=== PATIENT | male | born 1955 | race Caucasian/White ===

== ENCOUNTER 2019-06-21 12:30 | Inpatient (IN) | payer BC ==
[~2019-06-21] VITALS: Ht 185.4 cm; Wt 120.1 kg
[2019-08-24] VITALS (11 sets, daily range): BP systolic 100–146; BP diastolic 42–80; PULSE 52–78; TEMP 97.5–98.5
[2019-08-24] MEDS ORDERED: MULTI VITAMINS1 TAB PO (03:07)
[2019-08-24] MEDS ORDERED: FLOMAX 0.40.4 MG/CAP PO (03:07)
[2019-08-24] MEDS ORDERED: TYLENOL 325MG325 MG PO (03:08)
[2019-08-24] MEDS ORDERED: VITAMIN C500 MG PO (03:10)
[2019-08-24] MEDS ORDERED: IRON TABLETS325 MG PO (03:12)
[2019-08-24] MEDS ORDERED: ADVIL200 MG PO (03:13)
[2019-08-24] MEDS ORDERED: TYLENOL PM EXTR1 TA1 PO (03:14)
--- NOTE | 2019-08-24 05:50 | NUR ---
ARRIVES TO FLOOR VIA W/C FROM ADMITTING. IS ALERT AND ORIENTED X4.
--- NOTE | 2019-08-24 06:21 | NUR ---
TO SURGERY PER BED.
--- NOTE | 2019-08-24 12:03 | NUR ---
PT TO ROOM 328 PER BED WITH REPORT FROM DAVID ALATORRE PACU @[id number]. PT IS A/O X3 LUNGS CLEAR, BOWEL SOUNDS PRESENT. DRESSING TO LEFT KNEE CDI WITH LUBNA WRAP OVER INCISION. IV TO PUMP, SCDS PLACED. PT ORIENTED TO ROOM.
--- NOTE | 2019-08-24 13:51 | NUR ---
PT TO ROOM 332 PER BED WITH REPORT FROM DAVID ALATORRE PACU@1320. PT IS A/O X3, LUNGS CLEAR, BOWEL SOUNDS PRESENT. DRESSING TO LEFT KNEE CDI WITH OCCLUSIVE LUBNA DRESSING TO KNEE. IV TO PUMP , PT DENIES PAIN , SCDS PLACED BILATERALLY. IV TO PUMP.
--- NOTE | 2019-08-24 15:52 | NUR ---
PT UP TO [facility] WITH SBA AMBULATED 100 + FT WITH AIDE, PT CONTINUES TO BE INDEPENDENT IN ROOM AND OUT. VOIDING.
--- NOTE | 2019-08-24 15:59 | NUR ---
Retail Event And Sales Assistant met with patient to discuss discharge planning. Patient states he lives in [place] with his parents, Crystal and Ed. Patient doesn't know their numbers off the top of his head but has their contact information in his cell phone. Patient sees Rashid John APRN for primary care and obtains medications from [facility] in [place]. Patient has a walker to use during recovery but states he is normally independent with ADLS. Patient plans to return home upon discharge. SW to continue to follow as needed.
--- NOTE | 2019-08-24 16:15 | NUR ---
PT AMBULATING INDEPENDENTLY IN HALLS 100 + FEET WITH STEADY GAIT.
--- NOTE | 2019-08-24 20:30 | NUR ---
Pt. sitting up at bedside. Pt. is A&OX3, assessment complete. INt to rt. wrist patent. Dressing to lt. knee CDI. Pt. reports pain at a 8 on pain scale. Pt. reports that he wants to go outside to smoke. Educated pt. of no smoking policy, offered nicotine gum or patch. Pt. voiced understanding, and refused nicotine patch, or gum stating "They don't work". Pt. denies further needs, at this time. Call light within reach.
[2019-08-25 04:07] VITALS: BP 137/58; PULSE 81; TEMP 98
[2019-08-25] MEDS ORDERED: ASPI325T6 PO (07:16)
[2019-08-25] MEDS ORDERED: ROXICODONE 55 MG/TAB PO (07:17)
[2019-08-25] MEDS ORDERED: TYLENOL 500MG500 MG PO (07:17)
[2019-08-25] MEDS ORDERED: NORCO 325 MG-7.1 TAB PO (07:17)
[2019-08-25] MEDS ORDERED: COLACE 100100 MG/CAP PO (07:18)
[2019-08-25 07:43] LABS: HEMOGLOBIN 11.6 g/dl (13.5-18.0)
[2019-08-25 07:46] LABS: HEMATOCRIT 35.6 % (42.0-52.0)
[2019-08-25 07:51] VITALS: BP 144/69; PULSE 82; TEMP 97.6
--- NOTE | 2019-08-25 08:00 | NUR ---
PATIENT IS A&O. VSS. RATES PAIN IN LLE AT 5/10. GAVE PRN ROXICODONE, TWO TABS WITH AM MEDS. LTK DRESSING IS CD&I WITH BULK ACEWRAP. TEDS TO RLE. SCD'S CURRENTLY OFF. PATIENT INDEPENDENT IN ROOM AND HOPING TO DISCHARGE HOME LATER TODAY. GAIT STEADY WITH WALKER. POSITIVE PEDAL PULSES. HEAD TO TOE ASSESSMENT WNL. NO OTHER NEEDS.
--- NOTE | 2019-08-25 09:02 | NUR ---
Initial Visit; Patient thanked Digitizer Operator forlooking in on him and offering God's blessings.
--- NOTE | 2019-08-25 09:45 | NUR ---
CHANGED LTK BULK ACEWRAP DRESSING TO AQUACEL. TEDS TO BLE. PATIENT INDEPENDENT IN HALLS
[2019-08-25 11:56] VITALS: BP 122/54; PULSE 90; TEMP 97.8
--- NOTE | 2019-08-25 14:20 | NUR ---
PATIENT DISCHARGING HOME VIA WC TO PERSONAL VEHICLE WITH HIS DAD. GAVE DISCHARGE INSTRUCTIONS, PRESCRIPTIONS AND FOLLOW UP APTS. ANSWERED ALL QUESTIONS/CONCERNS. IV DC'D. PERSONAL BELONGINGS SENT HOME. PATIENT DISCHARGED.
== END 2019-08-25 14:20 | disposition home or self-care (01) | DRG 470 ==
LOC: JCC 08-24 05:42
PROVIDERS: ADMIT Orthopaedic Surgery
PROC: 0SRD0J9 Replacement of Left Knee Joint with Synthetic Substitute, Cemented, Open Approach (ICD-10-PCS; principal; 2019-08-24 07:30)
DX: M17.12 Unilateral primary osteoarthritis, left knee (principal); F17.210 Nicotine dependence, cigarettes, uncomplicated; G47.33 Obstructive sleep apnea (adult) (pediatric)
CPT/HCPCS: A9284; C1776; J0690; J1100; J2250; J2270; J2405; J2704; J3010; J7120

== ENCOUNTER 2020-01-13 14:47 | Inpatient (IN) | payer BC ==
[~2020-01-13] VITALS: Ht 185.4 cm; Wt 131.5 kg
[~2020-01-13 14:47] MED LIST: ADVIL200 MG PO; ASPI325T6 PO; COLACE 100100 MG/CAP PO; FLOMAX 0.40.4 MG/CAP PO; IRON TABLETS325 MG PO; MULTI VITAMINS1 TAB PO; NORCO 325 MG-7.1 TAB PO; ROXICODONE 55 MG/TAB PO; TYLENOL 325MG325 MG PO; TYLENOL 500MG500 MG PO; TYLENOL PM EXTR1 TA1 PO; VITAMIN C500 MG PO
[2020-03-21] VITALS (12 sets, daily range): BP systolic 105–147; BP diastolic 47–79; PULSE 38–74; TEMP 97.6–98.4
--- NOTE | 2020-03-21 05:10 | NUR ---
IV #20 INSYTE INSERTED TO RIGHT FOREARM BY OMAYRA ALATORRE. LR CONNECTED AND INFUSING WITHOUT PROBLEM.
--- NOTE | 2020-03-21 05:23 | NUR ---
TAKES PREOP MEDS WITH SIP OF WATER.
--- NOTE | 2020-03-21 05:55 | NUR ---
PT ARRIVES TO ROOM 327 VIA AMBULATORY STATUS. IS ALERT AND ORIENTED X4.
--- NOTE | 2020-03-21 06:10 | NUR ---
READY FOR SURGERY.
--- NOTE | 2020-03-21 12:00 | NUR ---
SUJEY met with the patient to discuss discharge plan. The patient lives alone in [place]. He states that his son, Nate (ph#[phone]), lives in [place]. He reports independence with ADLs and has a cane, walker, and rolaider. The patient's primary care provider is Dora Mike APRN at [facility] in [place] and he receives his medications at [facility] in [place]. He reports no difficulties obtaining his meds. The patient does not have a DPOA-HC in EMR, but he states that he does have one completed and that his son, Nate, is his DPOA-HC. The patient plans to return home and receive outpatient PT at [facility] in [place] upon discharge. No additional needs at this time.
--- NOTE | 2020-03-21 13:15 | NUR ---
PT OUT TO [facility] AMBULATING WITH THERAPY. AGRESSIVE STEADY GAIT. RETURNED TO ROOM AND COMPLETED ALL TASKS. PT DENIES PAIN AT THIS TIME.
--- NOTE | 2020-03-21 14:35 | NUR ---
PT INDEPENDENT IN ROOM AND HALLS, AMBULATING 150 + FT INDEPENDENTLY. REFUSES TO CALL FOR ASSIST. ATTEMPTED TO EDUCATE AND PT REFUSED.
--- NOTE | 2020-03-21 14:38 | NUR ---
PT REFUSING IV FLUIDS INT PER PT REQUEST.
--- NOTE | 2020-03-21 15:34 | NUR ---
PT AMBULATING INDEPENDENTLY IN HALLS, DENIES PAIN.
--- NOTE | 2020-03-21 16:58 | NUR ---
PT REPORTS VOIDING X3 THIS PM.
--- NOTE | 2020-03-21 19:00 | NUR ---
PT UP IN CHAIR AT BEDSIDE. HAS LARGE BULKY DRSG TO RT KNEE WITH LUBNA WRAP. HAS BEEN AMBULATING INDEPENDENTLY WITH WALKER IN HALLWAY WITH STEADY GAIT. WOULD LIKE TO GO HOME, DR MENDEZ SAID TOMORROW.
--- NOTE | 2020-03-21 20:21 | NUR ---
PT SITTING IN CHAIR. TAKES HS MEDS INCLUDING OXYCODONE 10MG PO FOR PAIN 6/10 TO RIGHT KNEE. IS ALERT AND ORIENTED, VOIDING WITHOUT PROBLEM.
--- NOTE | 2020-03-21 22:45 | NUR ---
IV ANTIBIOTIC GIVEN. PT REPORTS GOOD PAIN RELIEF WITH OXYCODONE.
--- NOTE | 2020-03-22 02:00 | NUR ---
AMBULATING IN HALLWAY. NOT SLEEPING, DENIES NEED FOR PAIN MEDS AT THIS TIME.
[2020-03-22 04:00] VITALS: BP 114/50; PULSE 56; TEMP 97.8
[2020-03-22 05:08] LABS: HEMOGLOBIN 12.3 g/dl (13.5-18.0)
[2020-03-22 05:09] LABS: HEMATOCRIT 36.9 % (42.0-52.0)
--- NOTE | 2020-03-22 06:00 | NUR ---
DR MENDEZ IN TO SEE PT. WILL DISCHARGE TODAY.
--- NOTE | 2020-03-22 06:15 | NUR ---
INT DC'D FROM RIGHT FOREARM, ANGIOCATH INTACT. DRSG CHANGED TO AQUACEL. TAKES AM MEDS AT THIS TIME.
[2020-03-22 06:48] VITALS: BP 104/66; PULSE 56; TEMP 97.5
--- NOTE | 2020-03-22 07:00 | NUR ---
PATIENT IS UP AND INDEPENDENT IN ROOM. HE HAS SHOWERED AND IS DRESSED. PATIENT REALLY WANTING TO DISCHARGE HOME EARLY THIS AM. STRUCTURAL MILL SUPERVISOR NURSE CHANGED POST OP DRESSING TO AQUACEL TO THE RLE AND DC'D HIS IV SITE. PATIENT HAS HIS BELONGINGS PACKED. HAS ROUNDED. AWAITING OFFICIAL DISCHARGE ORDERS TO BE ENTERED. BREAKFAST TRAY AT BEDSIDE.
[2020-03-22] MEDS ORDERED: ASPI325T6 PO (07:24)
[2020-03-22] MEDS ORDERED: ROXICODONE 55 MG/TAB PO (07:25)
[2020-03-22] MEDS ORDERED: ULTRAM 50MG TAB50 MG PO (07:25)
--- NOTE | 2020-03-22 07:44 | NUR ---
Shift assessment coplete. Patient has no complaints of pain at this time. Patient is ambulating frequently with walk and has a steady gait. Paitent has a steady gait. Anxious for discharge.
--- NOTE | 2020-03-22 08:37 | NUR ---
PATIENT DISCHARGING HOME VIA WC TO PERSONAL VEHICLE WHERE HIS FAMILY IS WAITING. GAVE DISCHARGE INSTRUCTIONS, SCRIPTS SENT ELECTRONICALLY TO HIS PHARMACY, AND F/U APT DISCUSSED. ANSWERED ALL QUESTIONS/CONCERNS. PATIENT DID NOT WANT TO TAKE HIS AM MEDS BEFORE LEAVING. PATIENT REPORTS HE WILL TAKE HIS DAILY MEDS AT HOME. PATIENT IS A SMOKER AND IS EAGER TO DISCHARGE. PATIENT ESCORTED OUT.
== END 2020-03-22 08:37 | disposition home or self-care (01) | DRG 470 ==
LOC: SDCO 02-24 07:30 → JCC 03-21 04:50 → EDSTATUS 03-21 07:30 → SDCO 03-21 07:30 → JCC 03-22 08:37
PROVIDERS: ADMIT Orthopaedic Surgery
PROC: 0SRC0J9 Replacement of Right Knee Joint with Synthetic Substitute, Cemented, Open Approach (ICD-10-PCS; principal; 2020-03-21 07:30)
DX: M17.11 Unilateral primary osteoarthritis, right knee (principal); Z88.0 Allergy status to penicillin
CPT/HCPCS: A9284; C1776; J0690; J1100; J1885; J2250; J2405; J2704; J3010; J7030; J7120